=== PATIENT | female | born 1970 | race Hispanic/Latino ===

== ENCOUNTER 2017-08-19 08:59 | Emergency (ER) | payer OTHER ==
[~2017-08-19] VITALS: Ht 165.1 cm; Wt 76.2 kg
[~2017-08-19 08:59] MED LIST: B12 1MG PE1000 MCG/M INJ; CYCLOBENZAPRINE10 M1 PO; DULOXETINE60 MG PO; HYDROXYCHLOROQ200 M1 PO; LEVOTHYROXIN0.175 MG PO; LYRICA150 MG PO; MINOCYCLINE HY100 MG PO; PERCOCET 5-3251 EACH PO; PROTONIX 40MG T40 MG PO; SAVELLA50 M1 PO; TYLENOL WITH C1 EAC1 PO; ZOFRAN 4 MG TABL4 MG PO; ZORVOLEX35 MG PO
[2017-08-19 10:32] LABS: ABSOLUTE BASOPHIL COUNT 0 /CUMM (0.0-0.2); ABSOLUTE EOSINOPHIL COUNT 0 /CUMM (0.0-0.7); ABSOLUTE GRANULOCYTE CT 5.1 /CUMM (1.4-6.5); ABSOLUTE LYMPH COUNT 0.4 /CUMM (1.2-3.4); ABSOLUTE MONOCYTE COUNT 0.4 /CUMM (0.10-0.60); BASOPHIL % 0 % (0.0-2.0); EOSINOPHIL % 0.2 % (0-5); HEMATOCRIT 30.1 % (37-47); MEAN CORPUSCULAR HGB 20.5 PG (27.0-31.0); MEAN CORPUSCULAR HGB CONC 31.4 G/DL (33.0-37.0); MEAN PLATELET VOLUME 8.8 FL (7.4-10.4); PLATELET COUNT 204 /CUMM (130-400); RED BLOOD CELL CT 4.62 /CUMM (4.20-5.40); WHITE BLOOD CELL COUNT 5.9 /CUMM (4.8-10.8)
[2017-08-19 10:35] LABS: GRANULOCYTE % 86.5 % (42.2-75.2)
[2017-08-19 10:40] LABS: PT 12.4 SEC (9.4-12.5); PTT 28 SEC (25-37)
[2017-08-19 10:41] LABS: MEAN CORPUSCULAR VOLUME 65.3 FL (81.0-99.0)
--- NOTE | 2017-08-19 11:36 | ED CARDIAC/CP/PALPITATIONS ---
History of Present Illness General Chief Complaint: Chest Pain Stated Complaint: CP Source: patient Exam Limitations: no limitations Vital Signs & Intake/Output Vital Signs & Intake/Output Vital Signs Date Time Temp Pulse Resp B/P B/P Pulse O2 O2 Flow FiO2 Mean Ox Delivery Rate 08/19 1359 98.7 109 18 111/64 99 Room Air 08/19 1141 105 18 104/61 08/19 1137 98 Room Air 08/19 1136 102 18 106/64 98 Room Air 08/19 0915 99.0 112 18 110/78 96 Room Air Allergies Coded Allergies: NSAIDS (Non-Steroidal Anti-Inflamma (GASTRIC BYPASS 02/07/16) aspirin (GASTRIC BYPASS 02/07/16) Reconcile Medications Cyclobenzaprine HCl 10 MG TABLET 1 TAB PO TID PRN MUSCLE RELAXANT MAY CAUSE DROWSINESS Hydroxychloroquine Sulfate 200 MG TABLET 2 TAB PO QPM AUTO IMMUNE (Reported) Hyoscyamine Sulfate (Levsin-Sl) 0.125 MG TAB.SUBL 1-2 TAB SL Q4P PRN abdominal pain Levothyroxine Sodium 0.175 MG TAB 1 TAB PO DAILY AC THYROID (Reported) Metoclopramide HCl (Reglan) 10 MG TABLET 1 TAB PO 4 TIMES/DAY PRN nausea abdominal pain 30 minutes before meals and bedtime Milnacipran (Savella) 50 MG TABLET 1 TAB PO BID AUTO IMMUNE (Reported) Oxycodone HCl/Acetaminophen (Percocet 5-325 MG Tablet) 1 EACH TABLET 1 TAB PO Q4-6 PRN PAIN Pregabalin (Lyrica) 150 MG CAPSULE AUTO IMMUNE (Reported) Tylenol With Codeine (Tylenol With Codeine #4 Tablet) 1 EACH TABLET 1 TAB PO Q4-6H PRN PAIN (Reported) Triage Note: PT STATES SHE HAS BEEN HAVING BNACK PAIN AND THEN TODAY SHE HAD A SHARP TIGHTNESS IN HER CHEST. PT STATES SHE TOOK A ASA AND THEN WENT BACK TO BED. PT STATES AGAIN AT 0650 THE SHARPNESS CAME AGAIN. PT REPORTS PAIN COMING AND GOING KERI SHOOT INTO HER BACK. PT REPORTS NAUSEA AND DIAPHORESIS. PT STATES HER HEADACHE IS VERY BAD Triage Nurses Notes Reviewed? 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 The patient reports her chest pain started abruptly this morning and woke her up from sleep around 3:00AM. The patient describes it as a sharp chest pain 8/10 radiating towards her left breast with associated chest tightness, difficulty breathing, diaphoresis, and paresthesia in her toes. The episode lasted about fifteen minutes, she took a baby aspirin and was able to go back to sleep. Then again around 700AM, waking up to take care of her children, she experiences similar symptoms plus nausea and two episodes of vomiting mostly frothy white sputum and came to the ED for evaluation. Currently, the patient states she can still feel a minor 1/10 squeezing chest pain. Family history is significant for coronary artery disease and myocardial infarctions in grandparents in their fifties. She never smoked, no hypertension or dyslipidemia, denies use of stimulants. She also has some epigastric and right upper quadrant pain. She had a gastric bypass, appendectomy and cholecystectomy in the past. She also endorses a thirty pound unintentional weight loss in the past two months. (Martell Pro MD) Nitro Today/Relief: 0.4 mg x 2, provided by ED, mild relief Aspirin Today: allergic Associated Symptoms: diaphoresis, dizziness, nausea/vomiting LMP (ages 10-50): unknown (Melanie VALLE,Eric) Past History Travel History Traveled to [place] past 21 day No Medical History Any Pertinent Medical History? see below for history Neurological: NONE EENT: NONE Cardiovascular: NONE Respiratory: NONE Gastrointestinal: NONE Hepatic: NONE Renal: NONE Musculoskeletal: unspecified autoimmune disorder fibromyalgia Psychiatric: NONE Endocrine: hypothyroidism Blood Disorders: NONE Cancer(s): NONE Surgical History Surgical History: appendectomy, cholecystectomy Psychosocial History What is your primary language Citizen Of [place] Tobacco Use: Never used ETOH Use: occasional use Illicit Drug Use: denies illicit drug use Family History Hx Contributory? Yes (Martell Pro MD) Review of Systems Review of Systems Constitutional: Reports: diaphoresis, malaise, unexplained weight loss. Denies: chills, fever. EENTM: Reports: no symptoms. Respiratory: Reports: no symptoms. Cardiovascular: Reports: chest pain. Denies: palpitations. GI: Reports: abdominal pain, nausea, vomiting. Denies: diarrhea. Genitourinary: Denies: dysuria, frequency. Musculoskeletal: Reports: back pain. Skin: Reports: no symptoms. Neurological/Psychological: Reports: paresthesia. Hematologic/Endocrine: Reports: no symptoms. Immunologic/Allergic: Reports: no symptoms. All Other Systems: Reviewed and Negative (Martell Pro MD) Physical Exam Physical Exam General Appearance: well developed/nourished, no apparent distress, alert, awake , comfortable Ears, Nose, Throat: normal pharynx, normal ENT inspection Respiratory: normal breath sounds, chest non-tender, no respiratory distress, quiet respiration, lungs clear Cardiovascular: regular rate/rhythm, normal peripheral pulses Gastrointestinal: normal bowel sounds, soft, epigastric and RUQ tenderness on palpation, no rebound tenderness or guarding Extremities: normal inspection, no edema Core Measures ACS in differential dx? Yes CVA/TIA Diagnosis No Sepsis Present: No Sepsis Focused Exam Completed? No (Martell Pro MD) Physical Exam Head: atraumatic, normal appearance Eyes: Bilateral: normal appearance, PERRL, EOMI. 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 Skin: intact, normal color, warm/dry Lymphatic: no anterior cervical mona (Eric Navarro MD) Progress Differential Diagnosis: AMI, musculoskeletal pain, myocarditis Plan of Care: Orders Procedure Date/time Status TROPONIN LEVEL 08/19 1330 Complete EKG 08/19 1330 Active TROPONIN LEVEL 08/19 1015 Complete PARTIAL THROMBOPLASTIN TIME 08/19 1015 Complete PROTHROMBIN TIME 08/19 1015 Complete LIPASE 08/19 1015 Complete COMPREHENSIVE METABOLIC PANEL 08/19 1015 Complete CBC WITHOUT DIFFERENTIAL 08/19 1015 Complete EKG 08/19 0901 Active Current Medications Sig/Lora Start time Last Medication Dose Stop Time Status Admin Nitroglycerin 0.4 MG Q 5 MINUTES X 3 DO.. 08/19 1130 AC 08/19 (Nitrostat) 1135 Laboratory Tests 08/19/17 1255: Troponin I < 0.01 08/19/17 1020: Anion Gap 16, Estimated GFR > 60, BUN/Creatinine Ratio 30.0 H, Glucose 136 H, Calcium 8.3 L, Total Bilirubin 0.8, AST 101 H, ALT 72 H, Alkaline Phosphatase 68, Troponin I < 0.01, Total Protein 7.1, Albumin 4.2, Globulin 2.9, Albumin/ Globulin Ratio 1.4, Lipase 25, PT 12.4, INR 1.18, APTT 28, CBC w Diff MAN DIFF ORDERED, RBC 4.62, MCV 65.3 L, MCH 20.5 L, RDW 20.0 H, MPV 8.8, Gran % 86.5 H, Lymphocytes % 6.5 L, Monocytes % 6.8, Eosinophils % 0.2, Basophils % 0, Absolute Granulocytes 5.1, Absolute Lymphocytes 0.4 L, Absolute Monocytes 0.4, Absolute Eosinophils 0, Absolute Basophils 0, Platelet Estimate VERIFIED BY SMEAR, Polychromasia 1+, Hypochromic-Microcytic 2+, Poikilocytosis 1+, Anisocytosis 1+, Microcytic Cells 2+, Ovalocytes 1+, PUBS MCHC 31.4 L Initial ED EKG: normal sinus rhythm (Martell Pro MD) Diagnostic Imaging: Viewed by Me: CT Scan. Discussed w/RAD: CT Scan. Radiology Impression: 1. There are mildly dilated loops of small bowel with thickened mendoza in the left abdomen, which is nonspecific. It may be secondary to infection or inflammation. It is less likely ischemic as the mesenteric vessels opacify There are mildly prominent mesenteric lymph nodes. It is new compared to 2016. 2. There are sequelae of prior gastric bypass, cholecystectomy and appendicectomy. 3. There is hepatic steatosis. Initial ED EKG: sinus tachycardia with ischemia Prior EKG: changed Rhythm Strip: normal sinus rhythm Comments: Improved after reglan. Little effect with ntg (Eric Navarro MD) Departure Departure Disposition: HOME OR SELF CARE Condition: Stable Referrals: Aide VALLE,Karli (PCP/Family) (Martell Pro MD) Departure Time of Disposition: 1437 Clinical Impression Primary Impression: Abdominal pain Additional Instructions: Clear liquids for 12-24 hours until better. Departure Forms: Customer Survey General Discharge Information RELEASE- WORK Prescriptions: Current Visit Scripts Metoclopramide HCl (Reglan) 1 TAB PO 4 TIMES/DAY PRN nausea abdominal pain #30 TAB 30 minutes before meals and bedtime Hyoscyamine Sulfate (Levsin-Sl) 1-2 TAB SL Q4P PRN abdominal pain #30 TAB Resident Co-Sign Statement Statement: ED Attending supervision documentation- x I saw and evaluated the patient. I have also reviewed all the pertinent lab results and diagnostic results. I agree with the findings and the plan of care as documented in the Resident's documentation. [] I have reviewed the ED Record and agree with the Resident's documentation. [] Additions or exceptions (if any) to the Resident's note and plan are summarized below: [] (Melanie VALLE,Eric) Critical Care Note Critical Care Note Critical Care Time: non-applicable (Inocencia VALLE,Martell)
--- NOTE | 2017-08-19 12:20 | RADIOLOGY REPORT ---
EXAMINATION: XR PORTABLE CHEST CLINICAL INFORMATION: Chest pain evaluate for aortic dissection. COMPARISON: 05/06/2013. TECHNIQUE: Portable frontal view of the chest was obtained. FINDINGS: The cardiomediastinal silhouette is not enlarged. The appearance of the mediastinum is unchanged by comparison with the prior study. The lungs are clear bilaterally. There is no evidence of pleural effusion or pneumothorax. IMPRESSION: No mediastinal widening or findings to suggest aortic dissection, the overall appearance of the chest is unchanged compared to the prior study of 05/06/2013, with no acute cardiopulmonary findings at this time.
--- NOTE | 2017-08-19 14:34 | CT SCAN REPORT ---
EXAMINATION: CT ABDOMEN AND PELVIS WITH CONTRAST CLINICAL INFORMATION: Abdominal pain. History of gastric bypass. Assess for obstruction. COMPARISON: CT scan of the abdomen and pelvis 02/07/2016. TECHNIQUE: Multidetector volumetric imaging was performed of the abdomen and pelvis following the IV administration of 95 mL of Optiray 320 intravenous contrast. Sagittal and coronal reformatted images were obtained on the technologist's workstation. Visualization of the bowel and soft tissues in the pelvis is suboptimal due to motion artifact. DLP: 390.42 mGy-cm FINDINGS: LUNG BASES: The visualized lung bases are unremarkable. LIVER, GALLBLADDER, AND BILIARY TREE: The liver is normal in size and shape. Attenuation is diffusely decreased consistent with hepatic steatosis. This was not appreciated on the prior noncontrast study. No focal hepatic lesion or biliary ductal dilatation is present. The gallbladder is surgically absent and there are clips in the gallbladder fossa. PANCREAS: Unremarkable. SPLEEN: The spleen is normal in size. ADRENAL GLANDS: The adrenal glands are not enlarged. KIDNEYS AND URETERS: The kidneys are normal in size, shape, and attenuation. There is no hydronephrosis or hydroureter and there are no renal calculi. There is no perinephric stranding. BLADDER: The urinary bladder is completely decompressed. GASTROINTESTINAL TRACT: The study redemonstrates the sequelae of the gastric bypass. There are surgical clips in the region of the stomach and in the small bowel in the left mid abdomen. There are mildly dilated loops of small bowel with thickened mendoza in the left mid and lower abdomen. More distally, the small bowel loops are fluid-filled, but do not have thickened mendoza. The ileocecal region appears normal. The appendix is not visualized, and there are surgical changes around the cecum consistent with prior appendicectomy, also demonstrated on the prior study. There is moderate fluid and feces within the large bowel and rectum. There is no free intra-abdominal air. ABDOMINAL WALL: No significant hernia is appreciated. LYMPH NODES: There is no pelvic or abdominal lymphadenopathy. There are small multiple mesenteric lymph nodes, which are slightly more prominent compared to the prior study. VASCULAR: There are no aneurysms. Flow is demonstrated in the superior mesenteric and celiac arteries. PELVIC VISCERA: The uterus is dextropositioned. There is a small amount of endometrial fluid. The left adnexum is enlarged with a cystic component measuring 4.8 cm. The left adnexum measured 2.9 cm on the prior study. There is trace free fluid. OSSEOUS STRUCTURES: There is a vacuum disc at L5-S1. The coccyx is anteverted with respect to the sacrum. IMPRESSION: 1. There are mildly dilated loops of small bowel with thickened mendoza in the left abdomen, which is nonspecific. It may be secondary to infection or inflammation. It is less likely ischemic as the mesenteric vessels opacify There are mildly prominent mesenteric lymph nodes. It is new compared to 2016. 2. There are sequelae of prior gastric bypass, cholecystectomy and appendicectomy. 3. There is hepatic steatosis.
[2017-08-19] MEDS ORDERED: REGLAN10 M1 PO (14:39)
[2017-08-19] MEDS ORDERED: LEVSIN-SL0.125 MG SL (14:39)
[2017-08-19 14:50] VITALS: BP 95/56
== END 2017-08-19 14:51 ==
LOC: ERH 08:59
PROVIDERS: Physician Assistant
DX: R10.9 Unspecified abdominal pain (principal)
CPT/HCPCS: 71045; 74177; 93005; 93010; 96374; 96375; J0131; J2765; J3490